=== PATIENT | female | born 1965 | race Caucasian/White ===

== ENCOUNTER 2021-05-08 23:18 | Emergency (ER) | payer OTHER ==
[~2021-05-08 23:18] MED LIST: FOLIC ACID 1 MG1 MG GT; FOLIC ACID 1 MG1 MG PO; KEPPRA 500 MG500 MG GT; KEPPRA 500 MG500 MG PO; VITAMIN B-1 5050 MG GT; VITAMIN B-150 MG PO
[2021-05-09] MEDS ORDERED: VENTOLIN HFA 66.7 GM INH (04:22)
[2021-05-09] MEDS ORDERED: ZOFRAN ODT 4 MG4 MG PO (04:23)
== END 2021-05-09 04:05 | disposition home or self-care (01) ==
LOC: ER1 23:18
DX: U07.1 COVID-19 (principal); F17.210 Nicotine dependence, cigarettes, uncomplicated; I10 Essential (primary) hypertension; Z88.0 Allergy status to penicillin
CPT/HCPCS: 0240U; 71045; 99284; J1100

== ENCOUNTER 2021-05-19 23:26 | Emergency (ER) | payer OTHER ==
[~2021-05-19 23:26] MED LIST changes: +VENTOLIN HFA 66.7 GM INH; +ZOFRAN ODT 4 MG4 MG PO
[2021-05-19] MEDS ORDERED: CLEOCIN HCL300 MG PO (23:46)
[2021-05-19] MEDS ORDERED: IBUPROFEN600 MG PO (23:46)
== END 2021-05-20 00:25 | disposition home or self-care (01) ==
LOC: ER1 23:26
DX: M71.9 Bursopathy, unspecified (principal); E78.5 Hyperlipidemia, unspecified; I10 Essential (primary) hypertension; G40.909 Epilepsy, unspecified, not intractable, without status epilepticus; F17.210 Nicotine dependence, cigarettes, uncomplicated; Z88.0 Allergy status to penicillin; Z90.710 Acquired absence of both cervix and uterus; Z79.82 Long term (current) use of aspirin
CPT/HCPCS: 99283

== ENCOUNTER 2021-06-08 23:16 | Emergency (ER) | payer OTHER ==
[~2021-06-08 23:16] MED LIST changes: +CLEOCIN HCL300 MG PO; +IBUPROFEN600 MG PO
[2021-06-09] MEDS ORDERED: LODINE CAP 300300 MG PO (01:42)
== END 2021-06-09 01:51 | disposition home or self-care (01) ==
LOC: ER1 23:16
DX: S16.1XXA Strain of muscle, fascia and tendon at neck level, initial encounter (principal); S29.012A Strain of muscle and tendon of back wall of thorax, initial encounter; S39.012A Strain of muscle, fascia and tendon of lower back, initial encounter; R51.9 Headache, unspecified; I10 Essential (primary) hypertension; E78.5 Hyperlipidemia, unspecified; Z90.710 Acquired absence of both cervix and uterus; F17.210 Nicotine dependence, cigarettes, uncomplicated; V49.40XA Driver injured in collision with unspecified motor vehicles in traffic accident, initial encounter; Y92.410 Unspecified street and highway as the place of occurrence of the external cause
CPT/HCPCS: 70450; 72125; 72128; 72131; 99283